=== PATIENT | male | born 1970 | race Caucasian/White ===

== ENCOUNTER 2018-05-01 05:11 | Emergency (ER) | payer MEDICARE, OTHER, SELFPAY ==
[2018-05-01] VITALS (9 sets, daily range): BP systolic 138–159; BP diastolic 77–102; PULSE 90–120; RESP 10–20; TEMP 36.4–36.7; O2SAT 93–99; BMI 24.1
--- NOTE | 2018-05-01 05:23 | ED_ITS ---
HPI - Psych General Chief Complaint: Psychiatric Symptoms Stated Complaint: Overdose Time Seen by Provider: 05/01/18 05:22 Source: patient Mode of arrival: EMS Limitations: no limitations History of Present Illness HPI Narrative: Patient is a 47-year-old male brought in by EMS for an involuntary hold written by the police for evaluation of suspected overdose. Patient did confirm this. Patient reports that last evening at 11 o'clock he took which he states was 40 15 mg morphine ER tablets and 25 mg oxycodone tablets and 8 and 9 5 mg Ambien tablets. He states that he did do this in an attempt to kill himself. Patient states that he has been dealing with neurologic issues with his leg shaking for a year now. He states that he has seen specialist down in [place] in [facility] with multiple tests and they have been unable to tell him what is going on. He states that last evening he started having shaking his legs and he got up to take a walk. He states that he went back to bed and the shaking returned. He states that point he became fed up with everything and drove to [employer] and took the pills as described above. He also states that in addition to this he was unable to go on a family vacation this week and because of his leg issues and this vacation been plan for the past 6 months. All of this built up to a point last night when he took the medicines. He denied any other ingestions. He denies any alcohol. Denies any pain. He was found in the [place]rams around [employer] by police. Patient did send a text to his last evening that I was able to visualize stating where she could find the car in where he had the naqvi and told her that he was sorry and that he left her. The patient's and his daughter who is at bedside state that he has been threatening to commit suicide for ?some time now ?. Patient reports that he has no prior suicide attempts. No prior admissions to the hospital. Review of Systems Constitutional Denies fatigue, Denies fever(s) and Denies headache(s) ENT Ears, Nose, Mouth, and Throat: Denies headache(s) Cardiovascular Denies chest pain, Denies palpitations and Denies dyspnea Respiratory Denies cough and Denies dyspnea Gastrointestinal Gastrointestinal: Denies abdominal pain, Denies nausea and Denies vomiting Genitourinary Denies dysuria Musculoskeletal Comments: Leg shaking that has been going on for a year Integumentary/Breasts Denies lesions and Denies rash Neurologic Denies headache(s) Psychiatric Reports depression and Reports suicidal ideation Endocrine Denies fatigue and Denies palpitations Hematologic/Lymphatic Denies easy bleeding and Denies easy bruising [facility] Medical History COPD (chronic obstructive pulmonary disease) (Acute) HIV (human immunodeficiency virus infection) (Acute) Surgical History No history of previous surgery (Acute) Social History marital status: lives independently: Yes Exam Initial Vital Signs Initial Vital Signs: Vital Signs Temperature 98.1 F 05/01/18 05:21 Pulse Rate 101 H 05/01/18 05:21 Respiratory Rate 15 05/01/18 05:21 Blood Pressure 159/98 H 05/01/18 05:21 Pulse Oximetry 99 05/01/18 05:21 Const General: cooperative, healthy appearing, comfortable, well developed, well groomed and No acute distress Orientation: alert, awake and oriented x3 HENMT Head: normal to inspection and normocephalic Resp Effort & Inspection: normal respiratory effort Auscultation: clear to auscultation bilaterally Cardio Rate: tachycardic Rhythm: regular rhythm Heart Sounds: no murmurs Pulses: radial pulses present GI Inspection: non-distended Palpation: soft Skin Lesions: no lesions Rashes: no rashes Neuro General: alert, awake and oriented x3 Cognition: normal cognition Speech: speech normal Motor: muscle tone normal throughout Sensory Exam: no sensory deficits noted Extrem General: normal to inspection and capillary refill normal Psych Appearance: grossly normal and well kempt Mental Status: other (Depressed mood) Mood: other (Depressed mood) Affect: sad and No hostile Attitude: cooperative Thought Process: normal Thought Content: normal Course Orders Ordered: ED Orders 05/01/18 EKG-12 Lead Routine 05/01/18 05:00 Acetaminophen Stat Complete Blood Count AUTO DIFF Stat Comprehensive Metabolic Panel Stat Ethanol (ETOH) Stat Lipase Stat Salicylate Stat 05/01/18 05:22 Urine Drug Screen, Rapid Stat Sodium Chloride (Normal Saline 0.9%) 1,000 mls @ 150 mls/hr IV CONT MIGUELITO Last Admin: 05/01/18 05:32 Dose: 150 mls/hr Vital Signs - 8 hr 05/01/18 05:21 05/01/18 05:45 Temperature 98.1 F Pulse Rate 101 H 98 H Respiratory Rate 15 18 Blood Pressure 159/98 H Blood Pressure [Right Arm] 147/89 H Pulse Oximetry 99 96 MDM - Psych Lab Data Attestation: I reviewed the patient's lab results. Result diagrams: 05/01/18 05:00 05/01/18 05:00 Lab Results 05/01/18 05/01/18 Range/Units 05:00 05:00 WBC 7.6 (4.5-11.0) X10^3/uL RBC 5.02 (4.5-5.9) X10^6/uL Hgb 15.9 (13.5-17.5) g/dL Hct 46.7 (41-53) % MCV 92.9 (80-100) fL MCH 31.6 (26-34) PG MCHC 34.0 (30-36) % RDW 14.8 (11.6-14.8) % Plt Count 274 (150-400) X10^3/uL Neut % (Auto) 87.7 H (50-75) % Lymph % (Auto) 10.9 L (25-40) % [place] % (Auto) 1.1 L (3-14) % Eos % (Auto) 0.1 L (2-4) % Baso % (Auto) 0.2 (0-2) % Neut # (Auto) 6700 H (2328-5289) /uL Sodium 138 (137-145) mmol/L Potassium 4.5 (3.4-5.1) mmol/L Chloride 102 (98-107) mmol/L Carbon Dioxide 24 (22-32) mmol/L BUN 24 H (9-20) mg/dL Creatinine 0.80 (0.66-1.25) mg/dL Estimated GFR > 60.0 (>60) mL/min BUN/Creatinine Ratio 30.0 H (6-22) Glucose 166 H (70-100) mg/dL Calcium 9.1 (8.4-10.2) mg/dL Total Bilirubin 0.6 (0.2-1.3) mg/dL AST 31 (17-59) IU/L ALT 36 (21-72) IU/L Alkaline Phosphatase 85 (38-126) U/L Total Protein 7.2 (6.3-8.2) g/dL Albumin 4.6 (3.5-5.0) g/dL Globulin 2.6 (1.7-4.1) g/dL Albumin/Globulin Ratio 1.8 (1.0-2.8) Lipase 105 (23-300) U/L Salicylates < 1.0 (<20) mg/dL Acetaminophen < 10 L (10-30) ug/mL Ethyl Alcohol < 10 mg/dL ECG Data Attestation: I personally reviewed and interpreted this ECG as follows: Prior ECG tracings: not available for review Interpretation: Sinus rhythm Ventricular rate in 98 Normal QRS Normal QTC No ST T wave changes MDM Narrative Medical decision making narrative: Discussed case with poison Control and his lungs the patient was not somnolent which he is not in his Tylenol level was negative which it is he could be medically cleared without observation. Patient did state that he took those medicines last evening to kill himself. This morning he denies suicidality. He stated that he did not feel like he need to be admitted to the hospital. His depression seems to be stemming from his chronic illness with his lower leg shaking. I feel that since he missed the family vacation this weekend and then the issues that happened last evening that put him over the edge to the point to where he felt like he needed to kill himself last evening. Patient was stable here in the emergency department. Was tachycardic upon arrival however that has improved. Patient was not hypothermic upon arrival. He has no signs of trauma. Patient is not restrained however I feel like he should not leave the department. I discussed the case with [facility] prior to the return of his UDS and they state that soon as we get the UDS back they were dispatched a [facility] provider to evaluate the patient. Care turned over to day provider at change of shift for disposition. Discharge Plan Departure Patient Disposition: Xfer Psychiatric Hosp Clinical Impression: Depression, Overdose, HIV disease
[2018-05-01] MEDS: SODIUM CHLORIDE 0.9% 1,000 ML 150 ML IV (05:32)
[2018-05-01 05:36] LABS: Add Manual Diff / Slide Review NO; Basophils Percent Auto 0.2 % (0-2); Eosinophils Percent Auto 0.1 % (2-4); Hematocrit 46.7 % (41-53); Hemoglobin 15.9 g/dL (13.5-17.5); Lymphocytes Percent Auto 10.9 % (25-40); Mean Corpuscular Hemoglobin 31.6 PG (26-34); Mean Corpuscular Volume 92.9 fL (80-100); Monocytes Percent Auto 1.1 % (3-14); Neutrophils Absolute Auto 6700 /uL (3000-5900); Neutrophils Percent Auto 87.7 % (50-75); Platelet Count 274 X10^3/uL (150-400); Red Blood Cell Count 5.02 X10^6/uL (4.5-5.9); Red Cell Distribution Width 14.8 % (11.6-14.8); White Blood Cell Count 7.6 X10^3/uL (4.5-11.0)
[2018-05-01 05:42] LABS: Acetaminophen < 10 ug/mL (10-30); Alanine Aminotransferase 36 IU/L (21-72); Albumin 4.6 g/dL (3.5-5.0); Albumin Globulin Ratio 1.8 (1.0-2.8); Alkaline Phosphatase 85 U/L (38-126); Aspartate Aminotransferase 31 IU/L (17-59); Bilirubin Total 0.6 mg/dL (0.2-1.3); Blood Urea Nitrogen 24 mg/dL (9-20); Calcium 9.1 mg/dL (8.4-10.2); Carbon Dioxide 24 mmol/L (22-32); Chloride 102 mmol/L (98-107); Estimated Glomerular Filt Rate > 60.0 mL/min (>60); Ethanol (ETOH) < 10 mg/dL; Globulin 2.6 g/dL (1.7-4.1); Glucose 166 mg/dL (70-100); HEMOLYSIS < 15 (0-50); Lipase 105 U/L (23-300); Potassium 4.5 mmol/L (3.4-5.1); Sodium 138 mmol/L (137-145); Total Protein 7.2 g/dL (6.3-8.2)
[2018-05-01 05:47] LABS: Salicylate < 1.0 mg/dL (<20)
--- NOTE | 2018-05-01 05:56 | PC.NURSE ---
Attempted to obtain urine sample-- Pt states he's unable to void at this time. Dr Jewell aware.
--- NOTE | 2018-05-01 06:41 | PC.NURSE ---
Dr Jewell talking with [facility] dispatch.
--- NOTE | 2018-05-01 08:28 | PC.NURSE ---
Checked on patient he is sleeping, attempted to wake up to get urine sample, but sleeping deep
--- NOTE | 2018-05-01 09:01 | PC.NURSE ---
Woke patient up to give urine sample, unable to go but asked for ice water so gave him some
--- NOTE | 2018-05-01 09:17 | PC.NURSE ---
Gave patient 2 glasses of ice water and a cup of coffee aware we need urine
--- NOTE | 2018-05-01 09:37 | PC.NURSE ---
patient sitting on bed awake with family
[2018-05-01 09:45] LABS: Urine Amphetamines Negative (Negative); Urine Barbiturates Negative (Negative); Urine Benzodiazepines Negative (Negative); Urine Cocaine Negative (Negative); Urine MDMA Negative (Negative); Urine Methadone Negative (Negative); Urine Methamphetamines Negative (Negative); Urine Morphine/Opi cutoff 2000 Positive (Negative); Urine Oxycodone Positive (Negative); Urine Phencyclidine Negative (Negative); Urine Tetrahydrocannabinol Positive (Negative); Urine Tricyclic Antidepressant Positive (Negative)
[2018-05-01] MEDS: SODIUM CHLORIDE 0.9% 1,000 ML 1000 ML IV (10:08)
--- NOTE | 2018-05-01 10:26 | PC.NURSE ---
Discussed overdose last night w/ patient. Pt states that he will stay for psychiatric evaluation but will not agree to in patient hospitalization. Denies current suicidality but states its because I don't have any meds left. Won't talk directly about attempt, simply states he has 'lots to do'. Family voices concern, stating they believe he is at high risk and would like him to be hospitalized. Pt talking w/ eyes closed. Clear speech. Denies homicidal thoughts.
--- NOTE | 2018-05-01 11:22 | PC.NURSE ---
Noted desaturation to 85% w/ RR 14. Snoring at times. states he frequently wakes up w/ snoring at home and does not sleep well. Placed on 2 l nc oxygen. Neck roll placed for improved airway positioning.
--- NOTE | 2018-05-01 12:14 | PC.NURSE ---
Noted desaturation to 83% w/o oxygen on (pt had moved out of place). Pt noted to be snoring. Easily arousalable to alert and oriented x 3 w/ recovery of sats to 97% when awake and oxygen 2l.
--- NOTE | 2018-05-01 12:48 | PC.NURSE ---
Patient resting on bed
[2018-05-01 12:55] LABS: BUN Creatinine Ratio 31.7 (6-22); Blood Urea Nitrogen 19 mg/dL (9-20); Calcium 7.7 mg/dL (8.4-10.2); Carbon Dioxide 26 mmol/L (22-32); Chloride 108 mmol/L (98-107); Estimated Glomerular Filt Rate > 60.0 mL/min (>60); Glucose 91 mg/dL (70-100); HEMOLYSIS < 15 (0-50); Potassium 4.2 mmol/L (3.4-5.1); Sodium 138 mmol/L (137-145)
--- NOTE | 2018-05-01 13:16 | PC.NURSE ---
Noted increase in heart rate to 128, sinus tachycardia. EKG called for. aware.
--- NOTE | 2018-05-04 14:11 | CM.SWNOTE ---
ED CIGARETTE PACKAGE EXAMINER WIRE COINER reviewed records and contacted pt as requested by ED Director and the RN who worked with pt. Pt was seen on 05/01/[address] Jewell and pt was evaluated by [facility]. He is a 47 yo male seen following a suicide attempt by overdose. ED CIGARETTE PACKAGE EXAMINER made a f/u phone call today. Pt was sleeping, but spoke with pt's who is listed on the facesheet as emergency contact and was present with him in the emergency room. She stated that she felt that he was safe, and has not expressed any other SI, but did have a return of his restless legs symptoms and has a call into his neurologist. WIRE COINER followed up in regard to whether they had found a psychiatrist as this was the recommendation from the [facility]. Pt's stated that she has been in contact with his PCP and a referral is in process. WIRE COINER inquired if there was any way that I could be of help. Pt's was appreciative of the phone call, but did not think that she needed any additional help. She was waiting on a return call from the Neurologist and had planned to follow up if she did not receive a return call soon. No further WIRE COINER needs noted. Thank you. Yashira Cobb WIRE COINER
== END 2018-05-01 14:41 | disposition home or self-care (01) ==
PROVIDERS: Emergency Medicine; Emergency Provider Emergency Medicine
DX: T40.2X2A Poisoning by other opioids, intentional self-harm, initial encounter (principal); T42.6X2A Poisoning by other antiepileptic and sedative-hypnotic drugs, intentional self-harm, initial encounter; R00.0 Tachycardia, unspecified
CPT/HCPCS: 36415; 80048; 80053; 80305; 80320; 80329; 83690; 85025; 93005; 93010; 96360; 96361; 99285; G0480

== ENCOUNTER 2018-05-13 19:09 | Emergency (ER) | payer MEDICARE, MEDICAID, SELFPAY ==
[2018-05-13 19:10] VITALS: BP 80/42; PULSE 188; RESP 22; TEMP 37.1; O2SAT 100
--- NOTE | 2018-05-13 19:28 | DI.RAD.S_ITS ---
PROCEDURE: XR CHEST 1V INDICATIONS: chest pain, SOB TECHNIQUE: One view of the chest was acquired. COMPARISON: None. FINDINGS: Surgical changes and devices: None. Lungs and pleura: No pleural effusions or pneumothorax. Lungs are clear. Mediastinum: Mediastinal contours appear normal. Heart size is normal. Bones and chest wall: No suspicious bony lesions. Overlying soft tissues appear unremarkable. IMPRESSION: No acute cardiopulmonary disease process. Dictated by: Kenyetta White MD, PhD on 05/13/2018 at 19:46 Approved by: Kenyetta White MD, PhD on 05/13/2018 at 19:46
[2018-05-13 19:30] VITALS: BP 91/73; PULSE 98; RESP 18
[2018-05-13] MEDS: SODIUM CHLORIDE 0.9% 1,000 ML 150 ML IV (19:37)
--- NOTE | 2018-05-13 19:37 | ED.ARRPALP ---
HPI - Arrhythmia/Palpitations General Chief Complaint: Arrhythmia/Palpitations Stated Complaint: RAPID HEART BEAT,SWEATY Time Seen by Provider: 05/13/18 19:15 Source: patient and family Mode of arrival: ambulatory Limitations: no limitations History of Present Illness HPI narrative: 47-year-old male with recent hospitalization for seizure-like symptoms at the [facility] presents with a rapid heart rate, shortness of breath and dizziness. He was just discharged from the [facility] today and had many neurologic medications altered including the suggestion that he quit his Keppra ?cold turkey?. He had been taking 500 mg b.i.d. he denies any history of tachyarrhythmia. He denies any significant alcohol nicotine or caffeine consumption MD complaint: rapid heart beat, heart racing and palpitations Onset (ago): hour(s) Duration: constant Severity: severe Context: occurred during rest Associated symptoms: shortness of breath and near-syncope Related Data Home Medications Medication Instructions Recorded Confirmed carbamazepine 400 mg PO BID 05/01/18 05/01/18 celecoxib 200 mg PO BID 05/01/18 05/01/18 bhjoveh-rdi-mjrmh-tenof alafen 1 tab PO DAILY 05/01/18 05/01/18 [Genvoya] levetiracetam 1,000 mg PO BEDTIME 05/01/18 05/01/18 levetiracetam 500 mg PO QAM 05/01/18 05/01/18 morphine 15 mg PO BID 05/01/18 05/01/18 oxycodone 5 mg PO DAILY PRN 05/01/18 05/01/18 prednisone 50 mg PO BEDTIME 05/01/18 05/01/18 zolpidem 5 mg PO BEDTIME 05/01/18 05/01/18 Allergies Allergy/AdvReac Type Severity Reaction Status Date / Time No Known Drug Allergies Allergy Verified 05/01/18 10:09 Review of Systems Review of Systems All systems reviewed & are unremarkable except as noted in HPI and below Constitutional Denies chills, Denies fever(s), Denies lethargy and Denies weakness Eyes Denies change in vision, Denies eye discharge, Denies irritation and Denies loss of vision ENT Ears, Nose, Mouth, and Throat: Denies change in voice, Denies neck pain and Denies sore throat Cardiovascular Reports chest pain, Denies irregular heart rhythm, Reports lightheadedness, Reports palpitations, Reports dyspnea, Denies dyspnea on exertion and Denies orthopnea Respiratory Denies cough, Reports dyspnea, Denies dyspnea on exertion and Denies wheezing Gastrointestinal Gastrointestinal: Denies abdominal pain, Denies change in bowel habits, Denies diarrhea, Denies nausea and Denies vomiting Genitourinary Denies hematuria, Denies flank pain, Denies urinary incontinence and Denies urinary urgency Musculoskeletal Denies neck pain Integumentary/Breasts Denies pruritus, Denies erythema, Denies rash and Denies wounds Neurologic Denies confusion, Denies loss of vision and Denies weakness Psychiatric Denies anxiety, Denies confusion, Denies depression, Denies homicidal ideation and Denies suicidal ideation Endocrine Reports palpitations Hematologic/Lymphatic Denies easy bruising Allergic/Immunologic Denies wheezing [facility] Medical History Bronchitis (Acute) COPD (chronic obstructive pulmonary disease) (Acute) Dyskinesia (Acute) HIV (human immunodeficiency virus infection) (Acute) Meningioma (Acute) Meningitis (Acute ~2006) Myoclonus (Acute) Nicotine dependence (Acute) Perthes disease (Acute) Surgical History No history of previous surgery (Acute) Social History marital status: lives independently: Yes Smoking Status: Current every day smoker Exam Narrative Exam Narrative: GENERAL: 47-year-old male in obvious distress, diaphoretic and pale HEAD: Atraumatic. Normocephalic. No temporal or scalp tenderness. EYES: Pupils equal round and reactive. Extraocular motions intact. No scleral icterus. No injection or drainage. ENT: Nose without bleeding, purulent drainage or septal hematoma. Throat without erythema, tonsillar hypertrophy or exudate. Uvula midline. Airway patent. NECK: Trachea midline. No JVD or lymphadenopathy. Supple, nontender, no meningeal signs. CARDIOVASCULAR: Tachycardic and regular RESPIRATORY: Clear to auscultation. Breath sounds equal bilaterally. No wheezes, rales, or rhonchi. GASTROINTESTINAL: Abdomen soft, non-tender, nondistended. No hepato-splenomegaly, or palpable masses. No guarding. EXTREMITIES: No clubbing, cyanosis, or edema. No joint tenderness, effusion, or edema noted. BACK: Nontender without deformity or crepitance. No flank tenderness. NEURO: AOx3. SKIN: No rash or erythema. Diaphoretic and pale Initial Vital Signs Initial Vital Signs: Vital Signs Temperature 98.8 F 05/13/18 19:10 Pulse Rate 188 H 05/13/18 19:10 Respiratory Rate 22 05/13/18 19:10 Blood Pressure 80/42 L 05/13/18 19:10 Pulse Oximetry 100 05/13/18 19:10 Procedures [facility] Procedure Name of Procedure: Modified Valsalva Time out performed: No Technique/Description of procedure performed: Patient asked to forcefully blow on 12 cc syringe for 15 sec while lying flat. At the 15 sec андрей his feet were lifted into the air as he continued to blow on the syringe. He quickly resolved is SVT into a sinus tachycardia in the low 100s with stents load to the upper 90s. The patient became nearly instantly and completely asymptomatic Patient tolerated procedure: Well Complications: none Course Orders Ordered: Discontinued Medications Sodium Chloride (Normal Saline 0.9%) 1,000 mls @ 150 mls/hr IV CONT MIGUELITO Last Infusion: 05/13/18 21:41 Dose: 0 mls/hr Infusion: 05/13/18 20:00 Dose: 1,000 mls/hr Admin: 05/13/18 19:37 Dose: 150 mls/hr Reevaluation(s) Reevaluation #1: Patient continues to do quite well after modified Valsalva maneuver. Consultations Consultation #1: Called to on-call Neurology at the [facility] who was able to review his records. We sure the opinion that his abrupt cessation of Keppra I play a role. She recommends a taper over the next 2-3 weeks starting with the dose he was on prior to arrival at the hospital and having the dose over 4 days, having the dose again over 4 days until he is only taking 1250 mg tablet a day for 4 days at which point he could stop. Vital Signs - 8 hr 05/13/18 19:10 05/13/18 19:30 Temperature 98.8 F Pulse Rate 188 H 98 H Respiratory Rate 22 18 Blood Pressure [Left Arm] 80/42 L 91/73 Pulse Oximetry 100 MDM - Arrhythmia/Palpitations Lab Data Result diagrams: 05/13/18 19:25 05/13/18 19:25 Lab Results 05/13/18 05/13/18 05/13/18 Range/Units 19:25 19:25 19:25 WBC 13.4 H (4.5-11.0) X10^3/uL RBC 5.13 (4.5-5.9) X10^6/uL Hgb 16.3 (13.5-17.5) g/dL Hct 46.9 (41-53) % MCV 91.4 (80-100) fL MCH 31.7 (26-34) PG MCHC 34.7 (30-36) % RDW 15.1 H (11.6-14.8) % Plt Count 371 (150-400) X10^3/uL Neut % (Auto) 78.5 H (50-75) % Lymph % (Auto) 15.4 L (25-40) % [place] % (Auto) 5.4 (3-14) % Eos % (Auto) 0.1 L (2-4) % Baso % (Auto) 0.6 (0-2) % Neut # (Auto) 47647 H (1755-3008) /uL Sodium 143 (137-145) mmol/L Potassium 4.3 (3.4-5.1) mmol/L Chloride 107 (98-107) mmol/L Carbon Dioxide 24 (22-32) mmol/L BUN 35 H (9-20) mg/dL Creatinine 1.60 H (0.66-1.25) mg/dL Estimated GFR 46.6 L (>60) mL/min BUN/Creatinine Ratio 21.9 (6-22) Glucose 107 H (70-100) mg/dL Calcium 9.8 (8.4-10.2) mg/dL Magnesium 2.4 H (1.6-2.3) mg/dL Total Creatine Kinase 25 L (55-170) U/L Troponin I 0.031 (0.01-0.034) ng/mL TSH 3.04 (0.47-4.68) uIU/mL Discharge Plan Departure Patient Disposition: Home Clinical Impression: SVT (supraventricular tachycardia) Discharge Date/Time: 05/13/18 22:06 Interventions: ED Discharge Assessment Last Done: 05/13/18 22:06 Instructions: Paroxysmal Supraventricular Tachycardia Activity Restrictions/Additional Instructions: *You have been diagnosed with [ supraventricular tachycardia ] *What to do: *Take medications as directed: Keppra 250 mg twice daily Wednesday and Wednesday. Starting Wednesday take only 250 mg once daily for 4 days and then you can stop taking Keppra altogether *Follow up with your primary care provider in 2-3 days, call for an appointment. Let them know you were seen in the Emergency Department and that we ask that you be seen in follow up *Return to ER if you should have any new, worsening or concerning symptoms, such Prescriptions: No Action celecoxib 200 mg capsule 200 mg PO BID RF: 0 levetiracetam 500 mg tablet 1,000 mg PO BEDTIME RF: 0 levetiracetam 500 mg tablet 500 mg PO QAM RF: 0 prednisone 5 mg tablet 50 mg PO BEDTIME RF: 0 carbamazepine 200 mg tablet 400 mg PO BID RF: 0 morphine 15 mg tablet extended release 15 mg PO BID RF: 0 zolpidem 5 mg tablet 5 mg PO BEDTIME RF: 0 oxycodone 5 mg tablet 5 mg PO DAILY PRN (Reason: Pain (Scale Score 4-6)) RF: 0 jurrqup-zic-prvkl-tenof alafen [Genvoya] [id number] mg tablet 1 tab PO DAILY RF: 0
[2018-05-13 19:45] LABS: Add Manual Diff / Slide Review NO; Basophils Percent Auto 0.6 % (0-2); Eosinophils Percent Auto 0.1 % (2-4); Hematocrit 46.9 % (41-53); Hemoglobin 16.3 g/dL (13.5-17.5); Lymphocytes Percent Auto 15.4 % (25-40); Mean Corpuscular HGB Conc 34.7 % (30-36); Mean Corpuscular Hemoglobin 31.7 PG (26-34); Mean Corpuscular Volume 91.4 fL (80-100); Monocytes Percent Auto 5.4 % (3-14); Neutrophils Absolute Auto 10500 /uL (3000-5900); Neutrophils Percent Auto 78.5 % (50-75); Platelet Count 371 X10^3/uL (150-400); Red Blood Cell Count 5.13 X10^6/uL (4.5-5.9); Red Cell Distribution Width 15.1 % (11.6-14.8); White Blood Cell Count 13.4 X10^3/uL (4.5-11.0)
[2018-05-13 19:47] LABS: BUN Creatinine Ratio 21.9 (6-22); Blood Urea Nitrogen 35 mg/dL (9-20); Calcium 9.8 mg/dL (8.4-10.2); Carbon Dioxide 24 mmol/L (22-32); Chloride 107 mmol/L (98-107); Creatine Kinase 25 U/L (55-170); Estimated Glomerular Filt Rate 46.6 mL/min (>60); Glucose 107 mg/dL (70-100); HEMOLYSIS 24 (0-50); Magnesium 2.4 mg/dL (1.6-2.3); Potassium 4.3 mmol/L (3.4-5.1); Sodium 143 mmol/L (137-145)
[2018-05-13 20:00] LABS: Troponin I 0.031 ng/mL (0.01-0.034)
[2018-05-13 20:18] LABS: Thyroid Stimulating Hormone 3.04 uIU/mL (0.47-4.68)
[2018-05-13 21:39] VITALS: BP 108/88; PULSE 88; RESP 14; O2SAT 98
--- NOTE | 2018-05-14 06:21 | ED_ITS ---
HPI - Arrhythmia/Palpitations General Chief Complaint: Arrhythmia/Palpitations Stated Complaint: RAPID HEART BEAT,SWEATY Time Seen by Provider: 05/13/18 19:15 Source: patient and family Mode of arrival: ambulatory Limitations: no limitations History of Present Illness HPI narrative: 47-year-old male with recent hospitalization for seizure-like symptoms at the [facility] presents with a rapid heart rate, shortness of breath and dizziness. He was just discharged from the [facility] today and had many neurologic medications altered including the suggestion that he quit his Keppra ?cold turkey?. He had been taking 500 mg b.i.d. he denies any history of tachyarrhythmia. He denies any significant alcohol nicotine or caffeine consumption MD complaint: rapid heart beat, heart racing and palpitations Onset (ago): hour(s) Duration: constant Severity: severe Context: occurred during rest Associated symptoms: shortness of breath and near-syncope Related Data Home Medications Medication Instructions Recorded Confirmed carbamazepine 400 mg PO BID 05/01/18 05/01/18 celecoxib 200 mg PO BID 05/01/18 05/01/18 puhylyn-sbo-qmjme-tenof alafen 1 tab PO DAILY 05/01/18 05/01/18 [Genvoya] levetiracetam 1,000 mg PO BEDTIME 05/01/18 05/01/18 levetiracetam 500 mg PO QAM 05/01/18 05/01/18 morphine 15 mg PO BID 05/01/18 05/01/18 oxycodone 5 mg PO DAILY PRN 05/01/18 05/01/18 prednisone 50 mg PO BEDTIME 05/01/18 05/01/18 zolpidem 5 mg PO BEDTIME 05/01/18 05/01/18 Allergies Allergy/AdvReac Type Severity Reaction Status Date / Time No Known Drug Allergies Allergy Verified 05/01/18 10:09 Review of Systems Review of Systems All systems reviewed & are unremarkable except as noted in HPI and below Constitutional Denies chills, Denies fever(s), Denies lethargy and Denies weakness Eyes Denies change in vision, Denies eye discharge, Denies irritation and Denies loss of vision ENT Ears, Nose, Mouth, and Throat: Denies change in voice, Denies neck pain and Denies sore throat Cardiovascular Reports chest pain, Denies irregular heart rhythm, Reports lightheadedness, Reports palpitations, Reports dyspnea, Denies dyspnea on exertion and Denies orthopnea Respiratory Denies cough, Reports dyspnea, Denies dyspnea on exertion and Denies wheezing Gastrointestinal Gastrointestinal: Denies abdominal pain, Denies change in bowel habits, Denies diarrhea, Denies nausea and Denies vomiting Genitourinary Denies hematuria, Denies flank pain, Denies urinary incontinence and Denies urinary urgency Musculoskeletal Denies neck pain Integumentary/Breasts Denies pruritus, Denies erythema, Denies rash and Denies wounds Neurologic Denies confusion, Denies loss of vision and Denies weakness Psychiatric Denies anxiety, Denies confusion, Denies depression, Denies homicidal ideation and Denies suicidal ideation Endocrine Reports palpitations Hematologic/Lymphatic Denies easy bruising Allergic/Immunologic Denies wheezing [facility] Medical History Bronchitis (Acute) COPD (chronic obstructive pulmonary disease) (Acute) Dyskinesia (Acute) HIV (human immunodeficiency virus infection) (Acute) Meningioma (Acute) Meningitis (Acute ~2006) Myoclonus (Acute) Nicotine dependence (Acute) Perthes disease (Acute) Surgical History No history of previous surgery (Acute) Social History marital status: lives independently: Yes Smoking Status: Current every day smoker Exam Narrative Exam Narrative: GENERAL: 47-year-old male in obvious distress, diaphoretic and pale HEAD: Atraumatic. Normocephalic. No temporal or scalp tenderness. EYES: Pupils equal round and reactive. Extraocular motions intact. No scleral icterus. No injection or drainage. ENT: Nose without bleeding, purulent drainage or septal hematoma. Throat without erythema, tonsillar hypertrophy or exudate. Uvula midline. Airway patent. NECK: Trachea midline. No JVD or lymphadenopathy. Supple, nontender, no meningeal signs. CARDIOVASCULAR: Tachycardic and regular RESPIRATORY: Clear to auscultation. Breath sounds equal bilaterally. No wheezes , rales, or rhonchi. GASTROINTESTINAL: Abdomen soft, non-tender, nondistended. No hepato-splenomegaly , or palpable masses. No guarding. EXTREMITIES: No clubbing, cyanosis, or edema. No joint tenderness, effusion, or edema noted. BACK: Nontender without deformity or crepitance. No flank tenderness. NEURO: AOx3. SKIN: No rash or erythema. Diaphoretic and pale Initial Vital Signs Initial Vital Signs: Vital Signs Temperature 98.8 F 05/13/18 19:10 Pulse Rate 188 H 05/13/18 19:10 Respiratory Rate 22 05/13/18 19:10 Blood Pressure 80/42 L 05/13/18 19:10 Pulse Oximetry 100 05/13/18 19:10 [place] [facility] [place] Procedure: Modified Valsalva Time out performed: No Technique/Description of procedure performed: Patient asked to forcefully blow on 12 cc syringe for 15 sec while lying flat. At the 15 sec андрей his feet were lifted into the air as he continued to blow on the syringe. He quickly resolved is SVT into a sinus tachycardia in the low 100s with stents load to the upper 90s. The patient became nearly instantly and completely asymptomatic Patient tolerated procedure: Well Complications: none Course Orders Ordered: Discontinued Medications Sodium Chloride (Normal Saline 0.9%) 1,000 mls @ 150 mls/hr IV CONT MIGUELITO Last Infusion: 05/13/18 21:41 Dose: 0 mls/hr Infusion: 05/13/18 20:00 Dose: 1,000 mls/hr Admin: 05/13/18 19:37 Dose: 150 mls/hr Reevaluation(s) Reevaluation #1: Patient continues to do quite well after modified Valsalva maneuver. Consultations Consultation #1: Called to on-call Neurology at the [facility] who was able to review his records. We sure the opinion that his abrupt cessation of Keppra I play a role. She recommends a taper over the next 2-3 weeks starting with the dose he was on prior to arrival at the hospital and having the dose over 4 days, having the dose again over 4 days until he is only taking 1250 mg tablet a day for 4 days at which point he could stop. Vital Signs - 8 hr 05/13/18 19:10 05/13/18 19:30 Temperature 98.8 F Pulse Rate 188 H 98 H Respiratory Rate 22 18 Blood Pressure [Left Arm] 80/42 L 91/73 Pulse Oximetry 100 MDM - Arrhythmia/Palpitations Lab Data Result diagrams: 05/13/18 19:25 05/13/18 19:25 Lab Results 05/13/18 05/13/18 05/13/18 Range/Units 19:25 19:25 19:25 WBC 13.4 H (4.5-11.0) X10^3/uL RBC 5.13 (4.5-5.9) X10^6/uL Hgb 16.3 (13.5-17.5) g/dL Hct 46.9 (41-53) % MCV 91.4 (80-100) fL MCH 31.7 (26-34) PG MCHC 34.7 (30-36) % RDW 15.1 H (11.6-14.8) % Plt Count 371 (150-400) X10^3/uL Neut % (Auto) 78.5 H (50-75) % Lymph % (Auto) 15.4 L (25-40) % Ector % (Auto) 5.4 (3-14) % Eos % (Auto) 0.1 L (2-4) % Baso % (Auto) 0.6 (0-2) % Neut # (Auto) 70329 H (5679-0182) /uL Sodium 143 (137-145) mmol/L Potassium 4.3 (3.4-5.1) mmol/L Chloride 107 (98-107) mmol/L Carbon Dioxide 24 (22-32) mmol/L BUN 35 H (9-20) mg/dL Creatinine 1.60 H (0.66-1.25) mg/dL Estimated GFR 46.6 L (>60) mL/min BUN/Creatinine Ratio 21.9 (6-22) Glucose 107 H (70-100) mg/dL Calcium 9.8 (8.4-10.2) mg/dL Magnesium 2.4 H (1.6-2.3) mg/dL Total Creatine Kinase 25 L (55-170) U/L Troponin I 0.031 (0.01-0.034) ng/mL TSH 3.04 (0.47-4.68) uIU/mL Discharge Plan Departure Patient Disposition: Home Clinical Impression: SVT (supraventricular tachycardia) Discharge Date/Time: 05/13/18 22:06 Interventions: ED Discharge Assessment Last Done: 05/13/18 22:06 Instructions: Paroxysmal Supraventricular Tachycardia Activity Restrictions/Additional Instructions: *You have been diagnosed with [ supraventricular tachycardia ] *What to do: *Take medications as directed: Keppra 250 mg twice daily Wednesday and Wednesday. Starting Wednesday take only 250 mg once daily for 4 days and then you can stop taking Keppra altogether *Follow up with your primary care provider in 2-3 days, call for an appointment. Let them know you were seen in the Emergency Department and that we ask that you be seen in follow up *Return to ER if you should have any new, worsening or concerning symptoms , such Prescriptions: No Action celecoxib 200 mg capsule 200 mg PO BID RF: 0 levetiracetam 500 mg tablet 1,000 mg PO BEDTIME RF: 0 levetiracetam 500 mg tablet 500 mg PO QAM RF: 0 prednisone 5 mg tablet 50 mg PO BEDTIME RF: 0 carbamazepine 200 mg tablet 400 mg PO BID RF: 0 morphine 15 mg tablet extended release 15 mg PO BID RF: 0 zolpidem 5 mg tablet 5 mg PO BEDTIME RF: 0 oxycodone 5 mg tablet 5 mg PO DAILY PRN (Reason: Pain (Scale Score 4-6)) RF: 0 [id number]-ucv-ebxzg-tenof alafen [Genvoya] [id number] mg tablet 1 tab PO DAILY RF: 0
== END 2018-05-13 22:06 | disposition home or self-care (01) ==
PROVIDERS: Emergency Provider Emergency Medicine
DX: I47.1 Supraventricular tachycardia (principal)
CPT/HCPCS: 36591; 71045; 80048; 82550; 82553; 83735; 84443; 84484; 85025; 93005; 93010; 96360; 96361; 99283; 99285

== ENCOUNTER 2018-07-04 20:52 | Emergency (ER) | payer MEDICARE, MEDICAID, SELFPAY ==
[2018-07-04 20:58] VITALS: BP 144/94; PULSE 108; RESP 20; TEMP 36.8; O2SAT 97
[2018-07-04 21:28] LABS: Add Manual Diff / Slide Review NO; Basophils Percent Auto 0.4 % (0-2); Eosinophils Percent Auto 0.3 % (2-4); Hematocrit 49.1 % (41-53); Hemoglobin 16.6 g/dL (13.5-17.5); Lymphocytes Percent Auto 7.8 % (25-40); Mean Corpuscular HGB Conc 33.9 % (30-36); Mean Corpuscular Hemoglobin 32.8 PG (26-34); Mean Corpuscular Volume 96.8 fL (80-100); Monocytes Percent Auto 3.7 % (3-14); Neutrophils Absolute Auto 12400 /uL (3000-5900); Neutrophils Percent Auto 87.8 % (50-75); Platelet Count 216 X10^3/uL (150-400); Red Blood Cell Count 5.07 X10^6/uL (4.5-5.9); Red Cell Distribution Width 17.9 % (11.6-14.8); White Blood Cell Count 14.1 X10^3/uL (4.5-11.0)
[2018-07-04 21:33] LABS: INR 0.9 (0.9-1.3); Prothrombin Time 9.8 SECONDS (10.1-12.7)
[2018-07-04 21:36] LABS: D Dimer 297 ng/mL (<230)
[2018-07-04 21:37] LABS: Alanine Aminotransferase 40 IU/L (21-72); Albumin 4.3 g/dL (3.5-5.0); Albumin Globulin Ratio 1.7 (1.0-2.8); Alkaline Phosphatase 80 U/L (38-126); Aspartate Aminotransferase 85 IU/L (17-59); Bilirubin Total 0.6 mg/dL (0.2-1.3); Blood Urea Nitrogen 32 mg/dL (9-20); Calcium 8.9 mg/dL (8.4-10.2); Carbon Dioxide 28 mmol/L (22-32); Chloride 106 mmol/L (98-107); Estimated Glomerular Filt Rate > 60.0 mL/min (>60); Globulin 2.6 g/dL (1.7-4.1); Glucose 98 mg/dL (70-100); HEMOLYSIS < 15 (0-50); Potassium 4.2 mmol/L (3.4-5.1); Sodium 142 mmol/L (137-145); Total Protein 6.9 g/dL (6.3-8.2)
[2018-07-04 21:55] LABS: Troponin I < 0.012 ng/mL (0.01-0.034)
--- NOTE | 2018-07-05 00:24 | ED_ITS ---
HPI - Extremity Injury (Lower) General Chief Complaint: Extremity Injury, Lower Stated Complaint: RIGHT LEG PAIN HARD TO WALK Time Seen by Provider: 07/04/18 21:45 Source: patient Mode of arrival: ambulatory Limitations: no limitations History of Present Illness HPI Narrative: 47-year-old former smoker presents with a chief complaint of significant pain and a popping sensation in his right posterior leg. He had been on Levaquin for the treatment of pneumonia and was walking and felt a pop in his lower leg. He now has pain with ambulation and significant bruising. He denies any numbness, tingling or weakness. He was seen by his primary care provider and they switched him from Levaquin to doxycycline. Related Data Home Medications Medication Instructions Recorded Confirmed carbamazepine 400 mg PO BID 05/01/18 05/01/18 celecoxib 200 mg PO BID 05/01/18 05/01/18 cjetyoj-lcn-kkzxe-tenof alafen 1 tab PO DAILY 05/01/18 05/01/18 [Genvoya] levetiracetam 1,000 mg PO BEDTIME 05/01/18 05/01/18 levetiracetam 500 mg PO QAM 05/01/18 05/01/18 morphine 15 mg PO BID 05/01/18 05/01/18 oxycodone 5 mg PO DAILY PRN 05/01/18 05/01/18 prednisone 50 mg PO BEDTIME 05/01/18 05/01/18 zolpidem 5 mg PO BEDTIME 05/01/18 05/01/18 Allergies Allergy/AdvReac Type Severity Reaction Status Date / Time No Known Drug Allergies Allergy Verified 05/01/18 10:09 Review of Systems Review of Systems All systems reviewed & are unremarkable except as noted in HPI and below Constitutional Denies chills, Denies fever(s), Denies lethargy and Denies weakness Eyes Denies change in vision, Denies eye discharge, Denies irritation and Denies loss of vision ENT Ears, Nose, Mouth, and Throat: Denies change in voice, Denies neck pain and Denies sore throat Cardiovascular Denies chest pain, Denies irregular heart rhythm, Denies lightheadedness, Denies palpitations, Denies dyspnea, Denies dyspnea on exertion and Denies orthopnea Respiratory Denies cough, Denies dyspnea, Denies dyspnea on exertion and Denies wheezing Gastrointestinal Gastrointestinal: Denies abdominal pain, Denies change in bowel habits, Denies diarrhea, Denies nausea and Denies vomiting Genitourinary Denies hematuria, Denies flank pain, Denies urinary incontinence and Denies urinary urgency Musculoskeletal Reports joint swelling, Reports limited range of motion and Denies neck pain Integumentary/Breasts Denies pruritus, Denies erythema, Denies rash and Denies wounds Neurologic Denies confusion, Denies loss of vision and Denies weakness Psychiatric Denies anxiety, Denies confusion, Denies depression, Denies homicidal ideation and Denies suicidal ideation Endocrine Denies palpitations Hematologic/Lymphatic Denies easy bruising Allergic/Immunologic Denies wheezing [facility] Medical History Bronchitis (Acute) COPD (chronic obstructive pulmonary disease) (Acute) Dyskinesia (Acute) HIV (human immunodeficiency virus infection) (Acute) Meningioma (Acute) Meningitis (Acute ~2006) Myoclonus (Acute) Nicotine dependence (Acute) Perthes disease (Acute) Surgical History No history of previous surgery (Acute) Social History marital status: lives independently: Yes Smoking Status: Current every day smoker Exam Narrative Exam Narrative: GEN: AOx3 and in mild distress EYES: Pupils are equal, round, and reactive to light and accommodation. Extraoccular muscles are intact bilaterally. There is no subconjunctival hemorrhage or exudate. CHEST: Lungs are clear to auscultation bilaterally and free of wheezes, rales, or rhonchi. Heart rate is regular rhythm, there are no murmurs, clicks, rubs, or gallops. There is no chest wall tenderness. ABD: Abdomen is soft and nontender. There is no guarding or rebound. Bowel sounds are normal in all 4 quadrants. There is no mass or organomegaly. EXT: As no plantar flexion with calf squeeze on the right lower extremity. Palpable divot noted a few cm proximal to Achilles insertion on the calcaneus. Noted ecchymosis. Findings consistent with Achilles tendon rupture SKIN: Warm, pink, and dry. No erythema or rash Initial Vital Signs Initial Vital Signs: Vital Signs Temperature 98.3 F 07/04/18 20:58 Pulse Rate 108 H 07/04/18 20:58 Respiratory Rate 20 07/04/18 20:58 Blood Pressure 144/94 H 07/04/18 20:58 Pulse Oximetry 97 07/04/18 20:58 Procedures Orthopedic Splinting/Casting Injury #1: Side: right Lower Extremity Injury Location: ankle and foot Lower Extremity Immobilizer: boot orthosis Course Orders Ordered: ED Orders 07/04/18 21:15 CBC [Complete Blood Count AUTO DIFF] Stat CMP [Comprehensive Metabolic Panel] Stat D Dimer Stat Prothrombin Time INR Stat Troponin I Stat Consultations Consultation #1: Dr. Thompson is happy with boot orthosis and follow up Vital Signs - 8 hr 07/04/18 20:58 07/05/18 00:47 Temperature 98.3 F 97.1 F L Pulse Rate 108 H 103 H Respiratory Rate 20 16 Blood Pressure 144/94 H 147/91 H Pulse Oximetry 97 97 MDM - Extremity Injury (Lower) Differential Diagnosis Likely ankle sprain and strain, ankle fracture and other Medical Records Attestation: I reviewed the patient's medical records. Lab Data Result diagrams: 07/04/18 21:15 07/04/18 21:15 Lab Results 07/04/18 07/04/18 07/04/18 Range/Units 21:15 21:15 21:15 WBC 14.1 H (4.5-11.0) X10^3/uL RBC 5.07 (4.5-5.9) X10^6/uL Hgb 16.6 (13.5-17.5) g/dL Hct 49.1 (41-53) % MCV 96.8 (80-100) fL MCH 32.8 (26-34) PG MCHC 33.9 (30-36) % RDW 17.9 H (11.6-14.8) % Plt Count 216 (150-400) X10^3/uL Neut % (Auto) 87.8 H (50-75) % Lymph % (Auto) 7.8 L (25-40) % Calvert % (Auto) 3.7 (3-14) % Eos % (Auto) 0.3 L (2-4) % Baso % (Auto) 0.4 (0-2) % Neut # (Auto) 10728 H (7632-0919) /uL PT 9.8 L (10.1-12.7) SECONDS INR 0.9 (0.9-1.3) D-Dimer 297 H (<230) ng/mL Sodium 142 (137-145) mmol/L Potassium 4.2 (3.4-5.1) mmol/L Chloride 106 (98-107) mmol/L Carbon Dioxide 28 (22-32) mmol/L BUN 32 H (9-20) mg/dL Creatinine 1.00 (0.66-1.25) mg/dL Estimated GFR > 60.0 (>60) mL/min BUN/Creatinine Ratio 32.0 H (6-22) Glucose 98 (70-100) mg/dL Calcium 8.9 (8.4-10.2) mg/dL Total Bilirubin 0.6 (0.2-1.3) mg/dL AST 85 H (17-59) IU/L ALT 40 (21-72) IU/L Alkaline Phosphatase 80 (38-126) U/L Troponin I < 0.012 (0.01-0.034) ng/mL Total Protein 6.9 (6.3-8.2) g/dL Albumin 4.3 (3.5-5.0) g/dL Globulin 2.6 (1.7-4.1) g/dL Albumin/Globulin Ratio 1.7 (1.0-2.8) Discharge Plan Departure Patient Disposition: Home Clinical Impression: Achilles tendon rupture Discharge Date/Time: 07/05/18 00:48 Interventions: ED Discharge Assessment Last Done: 07/05/18 00:47 Instructions: Achilles Tendon Rupture Activity Restrictions/Additional Instructions: *You have been diagnosed with [ right Achilles tendon rupture ] *What to do: *Take medications as directed *Follow up with [facility] orthopedist, call later in the morning for an appointment. Let them know you were seen in the Emergency Department and that we ask that you be seen in follow up *Return to ER if you should have any new, worsening or concerning symptoms Prescriptions: No Action celecoxib 200 mg capsule 200 mg PO BID RF: 0 levetiracetam 500 mg tablet 1,000 mg PO BEDTIME RF: 0 levetiracetam 500 mg tablet 500 mg PO QAM RF: 0 prednisone 5 mg tablet 50 mg PO BEDTIME RF: 0 carbamazepine 200 mg tablet 400 mg PO BID RF: 0 morphine 15 mg tablet extended release 15 mg PO BID RF: 0 zolpidem 5 mg tablet 5 mg PO BEDTIME RF: 0 oxycodone 5 mg tablet 5 mg PO DAILY PRN (Reason: Pain (Scale Score 4-6)) RF: 0 pdcofbu-dgw-qkvdj-tenof alafen [Genvoya] [id number] mg tablet 1 tab PO DAILY RF: 0 Referrals: Carson Thompson MD [Physician] -
[2018-07-05 00:47] VITALS: BP 147/91; PULSE 103; RESP 16; TEMP 36.2; O2SAT 97
== END 2018-07-05 00:48 | disposition home or self-care (01) ==
PROVIDERS: Emergency Provider Emergency Medicine
DX: S86.019A Strain of unspecified Achilles tendon, initial encounter (principal); Y93.01 Activity, walking, marching and hiking
CPT/HCPCS: 36415; 80053; 84484; 85025; 85379; 85610; 93005; 93010; 99283; 99284

== ENCOUNTER 2019-01-07 16:46 | Emergency (ER) | payer MEDICARE, MEDICAID, SELFPAY ==
[2019-01-07] VITALS (8 sets, daily range): BP systolic 113–138; BP diastolic 64–82; PULSE 76–243; RESP 16–22; TEMP 36.7–38.2; O2SAT 95–100
[2019-01-07] MEDS: SODIUM CHLORIDE 0.9% 1,000 ML 1000 ML IV ×2 (17:05→18:30)
[2019-01-07] MEDS: ADENOSINE 6 MG/2 ML VIAL IV (17:09)
[2019-01-07] MEDS: ADENOSINE 12 MG/4 ML SYRINGE IV (17:12)
--- NOTE | 2019-01-07 17:19 | DI.RAD.S_ITS ---
PROCEDURE: XR CHEST 1V INDICATIONS: fever and chest pain TECHNIQUE: One view of the chest was acquired. COMPARISON: [facility], CR, XR CHEST 1V, 05/13/2018, 19:32. FINDINGS: Surgical changes and devices: None. Lungs and pleura: Lungs are clear. No pleural effusions or pneumothorax. Mediastinum: Mediastinal contours appear normal. Heart size is normal. Bones and chest wall: No suspicious bony lesions. Overlying soft tissues appear unremarkable. There are overlying pacer pads noted bilaterally. IMPRESSION: 1. No acute cardiopulmonary disease. Dictated by: Carson Garcia M.D. on 01/07/2019 at 18:15 Approved by: Carson Garcia M.D. on 01/07/2019 at 18:15
[2019-01-07 17:26] LABS: Add Manual Diff / Slide Review NO; Basophils Absolute Auto 100 /uL (0-100); Basophils Percent Auto 0.6 % (0-2); Eosinophils Absolute Auto 0 /uL (0-450); Hematocrit 43.8 % (41-53); Hemoglobin 15.2 g/dL (13.5-17.5); Lymphocytes Absolute Auto 1300 /uL (1100-4500); Lymphocytes Percent Auto 6.7 % (25-40); Mean Corpuscular HGB Conc 34.7 % (30-36); Mean Corpuscular Hemoglobin 32.3 PG (26-34); Monocytes Absolute Auto 800 /uL (0-900); Monocytes Percent Auto 4.3 % (3-14); Neutrophils Absolute Auto 17100 /uL (1500-7000); Neutrophils Percent Auto 88.4 % (50-75); Platelet Count 218 X10^3/uL (150-400); Red Blood Cell Count 4.71 X10^6/uL (4.5-5.9); Red Cell Distribution Width 14.6 % (11.6-14.8); White Blood Cell Count 19.3 X10^3/uL (4.5-11.0)
[2019-01-07 17:38] LABS: Alanine Aminotransferase 10 IU/L (21-72); Albumin 4.2 g/dL (3.5-5.0); Albumin Globulin Ratio 1.4 (1.0-2.8); Alkaline Phosphatase 85 U/L (38-126); Aspartate Aminotransferase 23 IU/L (17-59); Bilirubin Total 0.6 mg/dL (0.2-1.3); Blood Urea Nitrogen 21 mg/dL (9-20); Calcium 9.7 mg/dL (8.4-10.2); Carbon Dioxide 21 mmol/L (22-32); Chloride 106 mmol/L (98-107); Estimated Glomerular Filt Rate > 60.0 mL/min (>60); Globulin 3.1 g/dL (1.7-4.1); Glucose 109 mg/dL (70-100); HEMOLYSIS < 15 (0-50); Potassium 3.7 mmol/L (3.4-5.1); Sodium 136 mmol/L (137-145); Total Protein 7.3 g/dL (6.3-8.2)
--- NOTE | 2019-01-07 17:53 | ED_ITS ---
HPI - Fever General Chief Complaint: Fever Stated Complaint: FEVER, HR RACING/DYSPNEA TODAY Time Seen by Provider: 01/07/19 17:04 Source: patient Mode of arrival: ambulatory Limitations: no limitations History of Present Illness HPI Narrative: Patient is a 48-year-old male presents with sudden onset fever. He says he was doing well this morning felt a little hot and sweaty and chilled and took a Tylenol lied down woke up and still did not feel well. Now states that his heart is pounding. He has a history of SVT, previously converted with vagal maneuvers. His heart rate in triage was in the 70s his actually got me from the hallway she thought his heart rate and pulse were fast. I immediately placed him on the monitor about his heart rate to be in the 240s. Treatment for his SVT was suddenly started. Required 2 doses of adenosine and then he finally converted. He says he denies any cough, no abdominal pain no nausea no vomiting. Complaining only initially of heart palpitations. MD complaint: fever Associated symptoms: chills and rigors Related Data Home Medications Medication Instructions Recorded Confirmed carbamazepine 400 mg PO BID 05/01/18 05/01/18 celecoxib 200 mg PO BID 05/01/18 05/01/18 [id number]-hio-swqge-tenof alafen 1 tab PO DAILY 05/01/18 05/01/18 [Genvoya] levetiracetam 1,000 mg PO BEDTIME 05/01/18 05/01/18 levetiracetam 500 mg PO QAM 05/01/18 05/01/18 morphine 15 mg PO BID 05/01/18 05/01/18 oxycodone 5 mg PO DAILY PRN 05/01/18 05/01/18 prednisone 50 mg PO BEDTIME 05/01/18 05/01/18 zolpidem 5 mg PO BEDTIME 05/01/18 05/01/18 Previous Rx's Medication Instructions Recorded sulfamethoxazole-trimethoprim 1 tab PO BID 7 Days #14 tab 01/07/19 [Bactrim DS] Allergies Allergy/AdvReac Type Severity Reaction Status Date / Time No Known Drug Allergies Allergy Verified 05/01/18 10:09 Review of Systems Review of Systems ROS Unobtainable: All systems reviewed & are unremarkable except as noted in HPI and below Constitutional Reports body ache(s), Reports chills and Reports fever(s) Eyes Denies change in vision, Denies eye discharge, Denies irritation and Denies loss of vision ENT Ears, Nose, Mouth, and Throat: Denies change in voice, Denies neck pain and Denies sore throat Cardiovascular Reports as per HPI, Denies dyspnea and Denies dyspnea on exertion Respiratory Denies cough, Denies dyspnea, Denies dyspnea on exertion and Denies wheezing Gastrointestinal Gastrointestinal: Denies abdominal pain, Denies change in bowel habits, Denies diarrhea, Denies nausea and Denies vomiting Genitourinary Denies hematuria, Denies flank pain, Denies urinary incontinence and Denies urinary urgency Musculoskeletal Denies back pain and Denies neck pain Integumentary/Breasts Denies pruritus, Denies erythema, Denies rash and Denies wounds Neurologic Denies loss of vision Allergic/Immunologic Denies wheezing [facility] Medical History Bronchitis (Acute) COPD (chronic obstructive pulmonary disease) (Acute) Dyskinesia (Acute) HIV (human immunodeficiency virus infection) (Acute) Meningioma (Acute) Meningitis (Acute ~2006) Myoclonus (Acute) Nicotine dependence (Acute) Perthes disease (Acute) Surgical History No history of previous surgery (Acute) Social History marital status: lives independently: Yes Smoking Status: Current every day smoker Social History marital status: lives independently: Yes Smoking Status: Current every day smoker Exam Initial Vital Signs Initial Vital Signs: Vital Signs Temperature 100.7 F H 01/07/19 16:50 Pulse Rate 76 01/07/19 16:50 Respiratory Rate 17 01/07/19 16:50 Blood Pressure 138/64 01/07/19 16:50 Pulse Oximetry 95 01/07/19 16:50 GENERAL: Alert week appearing male and in [no acute] distress. HEENT: Head atraumatic,EOMI, pupils reactive CARDIOVASCULAR: Tachycardic regular no murmurs RESPIRATORY: Breath sounds equal bilaterally, no wheezes rales or rhonchi. ABDOMEN: Soft, nontender. Normoactive bowel sounds all 4 quadrants. No guarding or rebound. EXTREMITIES: Normal range of motion, no clubbing or edema. Neurovascularly intact NEUROLOGICAL: Alert and oriented x4.Normal gait and speech. Cranial nerves II through XII grossly intact. SKIN: Warm, dry, no laceration, no petechiae, no rashes or lesions. Course Orders Ordered: Discontinued Medications Adenosine (Adenocard) 6 mg IV NOW ONE Stop: 01/07/19 17:19 Last Admin: 01/07/19 17:09 Dose: 6 mg Adenosine (Adenocard) 12 mg IV NOW ONE Stop: 01/07/19 17:20 Last Admin: 01/07/19 17:12 Dose: 12 mg Sodium Chloride (Normal Saline 0.9%) 1,000 mls @ 1,000 mls/hr IV BOLUS ONE Stop: 01/07/19 18:18 Last Infusion: 01/07/19 18:00 Dose: 0 mls/hr Admin: 01/07/19 17:05 Dose: 1,000 mls/hr Sodium Chloride (Normal Saline 0.9%) 1,000 mls @ 1,000 mls/hr IV BOLUS ONE Stop: 01/07/19 20:08 Last Infusion: 01/07/19 19:26 Dose: 0 mls/hr Admin: 01/07/19 18:30 Dose: 1,000 mls/hr Trimethoprim/Sulfamethoxazole (Bactrim Ds Prepack) 1 bottle MISC SEEINSTR ONE Stop: 01/07/19 19:00 Last Admin: 01/07/19 19:14 Dose: 1 bottle Vital Signs - 8 hr 01/07/19 16:50 01/07/19 17:05 01/07/19 17:10 Temperature 100.7 F H Pulse Rate 76 240 H 243 H Respiratory Rate 17 18 18 Blood Pressure 138/64 Blood Pressure [Left Arm] 133/81 126/82 Pulse Oximetry 95 97 01/07/19 17:15 01/07/19 17:20 01/07/19 17:34 Temperature Pulse Rate 230 H 118 H 119 H Respiratory Rate 18 22 Blood Pressure Blood Pressure [Left Arm] 133/81 136/78 119/73 Pulse Oximetry 98 97 98 01/07/19 18:34 Temperature 98.0 F Pulse Rate 110 H Respiratory Rate 18 Blood Pressure Blood Pressure [Left Arm] 117/77 Pulse Oximetry 97 MDM - Fever Lab Data Attestation: I reviewed the patient's lab results. Result diagrams: 01/07/19 17:08 01/07/19 17:08 Lab Results 01/07/19 01/07/19 01/07/19 Range/Units 17:08 17:08 17:08 WBC 19.3 H (4.5-11.0) X10^3/uL RBC 4.71 (4.5-5.9) X10^6/uL Hgb 15.2 (13.5-17.5) g/dL Hct 43.8 (41-53) % MCV 93.0 (80-100) fL MCH 32.3 (26-34) PG MCHC 34.7 (30-36) % RDW 14.6 (11.6-14.8) % Plt Count 218 (150-400) X10^3/uL Neut % (Auto) 88.4 H (50-75) % Lymph % (Auto) 6.7 L (25-40) % Parmer % (Auto) 4.3 (3-14) % Eos % (Auto) 0.0 L (2-4) % Baso % (Auto) 0.6 (0-2) % Neut # (Auto) 32176 H (3992-0038) /uL Lymph # (Auto) 1300 (8978-2331) /uL Parmer # (Auto) 800 (0-900) /uL Eos # (Auto) 0 (0-450) /uL Baso # (Auto) 100 (0-100) /uL Sodium 136 L (137-145) mmol/L Potassium 3.7 (3.4-5.1) mmol/L Chloride 106 (98-107) mmol/L Carbon Dioxide 21 L (22-32) mmol/L BUN 21 H (9-20) mg/dL Creatinine 1.00 (0.66-1.25) mg/dL Estimated GFR > 60.0 (>60) mL/min BUN/Creatinine Ratio 21.0 (6-22) Glucose 109 H (70-100) mg/dL Lactate (0.7-2.1) mmol/L Calcium 9.7 (8.4-10.2) mg/dL Total Bilirubin 0.6 (0.2-1.3) mg/dL AST 23 (17-59) IU/L ALT 10 L (21-72) IU/L Alkaline Phosphatase 85 (38-126) U/L Total Protein 7.3 (6.3-8.2) g/dL Albumin 4.2 (3.5-5.0) g/dL Globulin 3.1 (1.7-4.1) g/dL Albumin/Globulin Ratio 1.4 (1.0-2.8) Procalcitonin 0.46 (<0.5) ng/mL Urine RBC (0-5/HPF) Urine WBC (0-5/HPF) Ur Squamous Epith Cells (0-5/HPF) Urine Bacteria (None) Ur Culture Indicated? 01/07/19 01/07/19 Range/Units 17:35 18:40 WBC (4.5-11.0) X10^3/uL RBC (4.5-5.9) X10^6/uL Hgb (13.5-17.5) g/dL Hct (41-53) % MCV (80-100) fL MCH (26-34) PG MCHC (30-36) % RDW (11.6-14.8) % Plt Count (150-400) X10^3/uL Neut % (Auto) (50-75) % Lymph % (Auto) (25-40) % Parmer % (Auto) (3-14) % Eos % (Auto) (2-4) % Baso % (Auto) (0-2) % Neut # (Auto) (9519-7258) /uL Lymph # (Auto) (7317-6360) /uL Parmer # (Auto) (0-900) /uL Eos # (Auto) (0-450) /uL Baso # (Auto) (0-100) /uL Sodium (137-145) mmol/L Potassium (3.4-5.1) mmol/L Chloride (98-107) mmol/L Carbon Dioxide (22-32) mmol/L BUN (9-20) mg/dL Creatinine (0.66-1.25) mg/dL Estimated GFR (>60) mL/min BUN/Creatinine Ratio (6-22) Glucose (70-100) mg/dL Lactate 2.0 (0.7-2.1) mmol/L Calcium (8.4-10.2) mg/dL Total Bilirubin (0.2-1.3) mg/dL AST (17-59) IU/L ALT (21-72) IU/L Alkaline Phosphatase (38-126) U/L Total Protein (6.3-8.2) g/dL Albumin (3.5-5.0) g/dL Globulin (1.7-4.1) g/dL Albumin/Globulin Ratio (1.0-2.8) Procalcitonin (<0.5) ng/mL Urine RBC 5-10/hpf H (0-5/HPF) Urine WBC 10-30/hpf H (0-5/HPF) Ur Squamous Epith Cells 0-1 /hpf (0-5/HPF) Urine Bacteria Moderate (10-30) H (None) Ur Culture Indicated? Specimen cultured Urine Dip Bedside Urine Glucose Negative Bedside Urine Bilirubin - Negative Bedside Urine Ketone - Negative Urine Specific [place] 1.005 Bedside Urine Occult Blood +++ Bedside Urine pH 6.0 Bedside Urine Protein - Negative Bedside Urine Urobilinogen - Negative Bedside Urine Nitrite - Negative Bedside Urine Leukocytes +++ 500 Esterase ECG Data Attestation: I personally reviewed and interpreted this ECG as follows: Prior ECG tracings: available for review Interpretation: EKG 1. SVT heart rate to 39 EKG number 2 sinus rhythm rate [address] changes MDM Narrative Medical decision making narrative: Patient does have HIV viral load is 0, which was checked yesterday, it has been 0 for the last 10 years. states that he had a CD4 count as well which was more than 270 something she said. He is followed closely by doctors in [place]. Patient does have leukocytosis. Normal lactic acid mildly elevated procalcitonin. Urine does have significant leukocytes however he has no signs or symptoms of UTI. He has no real signs or symptoms except fever. At this time patient feels a great would like to go home. I have discussed that if he is feeling poorly at any time he needs to return to the ER immediately. He does have quite a bit of leukocytes in his urine. states that he actually is urinating more frequently. At this time I will put him on Bactrim for UTI. He agrees to return at any time if symptoms are getting worse Discharge Plan Departure Patient Disposition: Home Clinical Impression: SVT (supraventricular tachycardia), Acute UTI Discharge Date/Time: 01/07/19 19:08 Interventions: ED Discharge Assessment Last Done: 01/07/19 19:42 Instructions: DI for Urinary Tract Infection (UTI), DI for Fever (Symptom) -- Adult Activity Restrictions/Additional Instructions: *You have been diagnosed with SVT and UTI *What to do: You have some bladder infection according to your urine. At this time I think it is reasonable to treat with antibiotics. *Continue to take medications as directed Bactrim 1 tab twice a day for 7 days *Follow up with your primary care provider in 2-3 days *Return to ER if you should have increasing fever not controlled, shortness of breath, heart palpitations, dizziness or any new, worsening or concerning symptoms Prescriptions: New sulfamethoxazole-trimethoprim [Bactrim DS] 800-160 mg tablet 1 tab PO BID 7 Days Qty: 14 RF: 0 No Action celecoxib 200 mg capsule 200 mg PO BID RF: 0 levetiracetam 500 mg tablet 1,000 mg PO BEDTIME RF: 0 levetiracetam 500 mg tablet 500 mg PO QAM RF: 0 prednisone 5 mg tablet 50 mg PO BEDTIME RF: 0 carbamazepine 200 mg tablet 400 mg PO BID RF: 0 morphine 15 mg tablet extended release 15 mg PO BID RF: 0 zolpidem 5 mg tablet 5 mg PO BEDTIME RF: 0 oxycodone 5 mg tablet 5 mg PO DAILY PRN (Reason: Pain (Scale Score 4-6)) RF: 0 isellde-[id number]-tenof alafen [Genvoya] 300-977-473-10 mg tablet 1 tab PO DAILY RF: 0
[2019-01-07 17:58] LABS: Procalcitonin 0.46 ng/mL (<0.5)
[2019-01-07 18:56] LABS: Bacteria Urine Moderate (10-30); Culture Indicated Urine Specimen Cultured; RBC Urine 5-10/HPF (0-5/HPF); Squamous Epithelial Cell Urine 0-1 /HPF (0-5/HPF); WBC Urine 10-30/HPF (0-5/HPF)
[2019-01-07] MEDS: TRIMETH/SULFA 160/800 PREPACK 1 BOTTLE MISC (19:14)
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
--- NOTE | 2019-01-07 19:41 | PC.NURSE ---
Late Entry at 1830-wound cleansed with soap and water, dried well, applied bacitracin and covered with non-adherent dressing and wrapped with kurling and pt tolerated well
[2019-01-08 08:10] LABS: Acinetobacter baumannii Not Detected (Not Detect); Enterococcus species Not Detected (Not Detect); Listeria monocytogenes Not Detected (Not Detect); Staphylococcus species Not Detected (Not Detect); Streptococcus agalactiae (Gr B Not Detected (Not Detect); Streptococcus pneumonia Not Detected (Not Detect); Streptococcus pyogenes (Gr A) Not Detected (Not Detect); Streptococcus species Not Detected (Not Detect)
[2019-01-08 08:11] LABS: Candida albicans Not Detected (Not Detect); Candida glabrata Not Detected (Not Detect); Candida krusei Not Detected (Not Detect); Candida parapsilosis Not Detected (Not Detect); Candida tropicalis Not Detected (Not Detect); E. coli Detected (Not Detect); Enterobacter cloacae complex Not Detected (Not Detect); Enterobacteriaceae species Detected (Not Detect); Haemophilus influenzae Not Detected (Not Detect); KPC (carbapenem-resist gene) Not Detected (Not Detect); Neisseria meningitidis Not Detected (Not Detect); Proteus species Not Detected (Not Detect); Pseudomonas aeruginosa Not Detected (Not Detect); Serratia marcescens Not Detected (Not Detect)
--- NOTE | 2019-01-08 08:13 | PC.NURSE ---
Lab called + blood culture for ecoli
== END 2019-01-07 19:08 | disposition home or self-care (01) ==
PROVIDERS: Emergency Provider Emergency Medicine
DX: I47.1 Supraventricular tachycardia (principal); B96.20 Unspecified Escherichia coli [E. coli] as the cause of diseases classified elsewhere; R06.00 Dyspnea, unspecified
CPT/HCPCS: 36415; 71045; 80053; 81003; 81015; 83605; 84145; 85025; 87040; 87070; 87075; 87077; 87086; 87150; 87186; 87205; 93005; 96361; 96374; 99285; J0153